=== PATIENT | male | born 1935 | race Caucasian/White ===

== ENCOUNTER 2017-03-20 12:17 | Emergency (ER) | payer OTHER ==
[~2017-03-20] VITALS: Ht 172.7 cm; Wt 72.5 kg
[~2017-03-20 12:17] MED LIST: AMLO-512 PO; ATOR20TA86 PO; BENA20 PO; CARV6 PO; FURO20TA4 PO; PIOG30TA10 PO; REPA2 PO; SITA50 PO; TAMS0.4C32 PO; WARF2 PO
[2017-03-20] MEDS ORDERED: FURO40 PO (12:34)
[2017-03-20 12:58] LABS: GLUCOSE,POINT OF CARE 101 MG/DL (70-110)
[2017-03-20] MEDS ORDERED: ACETAMINOPHEN 500 MG TABLET PO ONE (13:15)
[2017-03-20 13:34] VITALS: BP 134/75
== END 2017-03-20 14:36 | disposition home or self-care (01) ==
LOC: EMS 12:18
DX: M25.461 Effusion, right knee (principal); E11.9 Type 2 diabetes mellitus without complications; I11.0 Hypertensive heart disease with heart failure; I50.9 Heart failure, unspecified; K21.9 Gastro-esophageal reflux disease without esophagitis; E78.00 Pure hypercholesterolemia, unspecified
CPT/HCPCS: 29505; 82962; 99284

== ENCOUNTER 2017-04-05 13:29 | Inpatient (IN) | payer OTHER ==
[~2017-04-05] VITALS: Ht 175.3 cm; Wt 73.9 kg
[~2017-04-05 13:29] MED LIST changes: -FURO20TA4 PO; +FURO40 PO
[2017-04-05] MEDS ORDERED: IOVERSOL 350 MG/ML 100 ML VIAL ONE (13:45)
[2017-04-05] MEDS ORDERED: SODIUM CHLORIDE 0.9% 100 ML ONE (13:46)
[2017-04-05 14:14] LABS: INR 1.3 (0.9-1.1); PROTHROMBIN TIME 14.1 SEC (9.4-11.6)
[2017-04-05 14:24] LABS: HEMATOCRIT 37.5 % (41-53); HEMOGLOBIN 12.9 g/dL (13.5-17.5); MEAN CORPUSCULAR HEMOGLOBIN 33.3 pg (26.0-34.0); MEAN CORPUSCULAR HGB CONC 34.3 G/dL (31.0-37.0); MEAN CORPUSCULAR VOLUME 97 fL (80-100); RED BLOOD CELL COUNT(AUTO) 3.86 MIL/uL (4.50-5.90); RED CELL DISTRIBUTION WIDTH 15.4 % (11.5-14.5); WHITE BLOOD COUNT (AUTO) 5.7 K/uL (4.5-11.0)
[2017-04-05 14:25] LABS: BASOPHILS % (AUTO) 0.5 % (0.0-2.0); EOSINOPHILS % (AUTO) 2.8 % (1.0-6.0); LYMPHOCYTES % (AUTO) 34.4 % (22.0-44.0); MONOCYTES # (AUTO) 0.6 K/uL (0.1-1.0); MONOCYTES % (AUTO) 11.2 % (2.0-9.0); NEUTROPHILS # (AUTO) 2.9 K/uL (1.8-7.7); NEUTROPHILS % (AUTO) 51.1 % (40.0-70.0); PLATELET COUNT (AUTO) 152 K/uL (150-450)
[2017-04-05 14:35] LABS: ANION GAP 5 mmol/L (8-16); CALCIUM, TOTAL 8.1 mg/dL (8.8-10.5); CARBON DIOXIDE 32 mmol/L (22-29); CHLORIDE 100 mmol/L (98-107); CREATININE 1.09 mg/dL (0.60-1.30); GLOMERULAR FILTR. RATE CALC > 60 mL/min (>60); SODIUM SERUM 137 mmol/L (136-145); UREA NITROGEN, BLOOD 16 mg/dL (7-18)
[2017-04-05 14:41] LABS: ALANINE AMINOTRANSFERASE 28 U/L (12-78); ALBUMIN 2.9 g/dL (3.4-5.0); ASPARTATE AMINOTRANSFERASE 21 U/L (15-37); BILIRUBIN,TOTAL 1.1 mg/dL (0.1-1.0); CREATINE KINASE, TOTAL 49 U/L (39-308); TOTAL PROTEIN, SERUM 6.6 g/dL (6.4-8.2)
[2017-04-05] MEDS ORDERED: ACETAMINOPHEN 325 MG TABLET PO PRN ×2 (15:00→16:00)
[2017-04-05] MEDS ORDERED: 0.9% SODIUM CHLORIDE 10 ML SYRINGE IVP PRN (15:00)
[2017-04-05] MEDS ORDERED: ONDANSETRON HCL 4 MG/2 ML VIAL IVP PRN (15:00)
[2017-04-05] MEDS ORDERED: SODIUM CHLORIDE 0.9% 1,000 ML IV ONE (15:00)
[2017-04-05 15:06] LABS: APPEARANCE,URINE CLEAR (CLEAR); GLUCOSE, URINE (UA) NEGATIVE (NEGATIVE); KETONES,URINE NEGATIVE (NEGATIVE); LEUKOCYTE ESTERASE ,URINE TRACE (NEGATIVE); OCCULT BLOOD,URINE NEGATIVE (NEGATIVE); PH,URINE 6.5 (5.0-8.0); PROTEIN,URINE NEGATIVE (NEGATIVE)
[2017-04-05 15:16] LABS: ADD UA MICROSCOPIC YES; RBC,URINE 0-2 /HPF (0-2); WBC,URINE 0-2 /HPF (0-5)
[2017-04-05 15:18] LABS: B-TYPE NATRIURETIC PEPTIDE 317 pg/mL (0-100)
[2017-04-05] MEDS ORDERED: MAGNESIUM HYDROXIDE SUSPENSION 30 ML UDCUP PO PRN (16:00)
[2017-04-05] MEDS ORDERED: *CLINICAL-WARFARIN SODIUM DOSING CLINICAL ONE ×2 (16:00)
[2017-04-05] MEDS ORDERED: ALBUTEROL SULFATE 2.5 MG/0.5 ML NEB SOLUTION NEB PRN (16:00)
[2017-04-05] MEDS ORDERED: DEXTROSE 50%-WATER 25 GM/50 ML SYRINGE IVP PRN (16:00)
[2017-04-05 17:42] VITALS: BP 128/74
[2017-04-05] MEDS: ATORVASTATIN CALCIUM 20 MG TABLET PO SCH (18:34)
[2017-04-05] MEDS: WARFARIN SODIUM 2 MG TABLET PO SCH (18:34)
[2017-04-05 18:37] LABS: GLUCOSE,POINT OF CARE 78 MG/DL (70-110)
[2017-04-05 21:05] VITALS: BP 124/64
[2017-04-05] MEDS: DOCUSATE SODIUM 100 MG CAPSULE PO SCH (21:28)
[2017-04-05] MEDS: ENOXAPARIN SODIUM 60 MG/0.6 ML PF SYRINGE SQ SCH (22:02)
[2017-04-05] MEDS: INSULIN ASPART 100 UNITS/ML SQ PRN (22:02)
[2017-04-05 22:12] LABS: GLUCOSE,POINT OF CARE 180 MG/DL (70-110)
[2017-04-06 00:25] VITALS: BP 111/61
[2017-04-06 05:41] VITALS: BP 122/68
[2017-04-06 06:38] LABS: GLUCOSE,POINT OF CARE 89 MG/DL (70-110)
[2017-04-06 06:54] LABS: INR 1.4 (0.9-1.1); PROTHROMBIN TIME 14.8 SEC (9.4-11.6)
[2017-04-06] MEDS: PANTOPRAZOLE SODIUM 40 MG DR TABLET PO SCH (08:21)
[2017-04-06] MEDS: ENOXAPARIN SODIUM 60 MG/0.6 ML PF SYRINGE SQ SCH ×2 (08:21→20:53)
[2017-04-06] MEDS: ATORVASTATIN CALCIUM 20 MG TABLET PO SCH (08:21)
[2017-04-06] MEDS: DOCUSATE SODIUM 100 MG CAPSULE PO SCH ×2 (08:21→20:53)
[2017-04-06 11:48] LABS: GLUCOSE COMMENT 1 Received Meds; GLUCOSE,POINT OF CARE 143 MG/DL (70-110)
[2017-04-06 11:49] VITALS: BP 120/71
[2017-04-06] MEDS: INSULIN ASPART 100 UNITS/ML SQ PRN ×2 (12:09→20:57)
[2017-04-06 14:08] VITALS: BP 114/68
[2017-04-06 15:28] VITALS: BP 122/70
[2017-04-06] MEDS: WARFARIN SODIUM 2 MG TABLET PO SCH (17:08)
[2017-04-06 20:01] VITALS: BP 106/52
[2017-04-06 22:23] LABS: GLUCOSE,POINT OF CARE 196 MG/DL (70-110)
[2017-04-06 22:23] LABS: GLUCOSE,POINT OF CARE 87 MG/DL (70-110)
[2017-04-07 00:05] VITALS: BP 114/58
[2017-04-07 05:17] VITALS: BP 124/59
[2017-04-07 07:01] LABS: INR 1.7 (0.9-1.1); PROTHROMBIN TIME 17.7 SEC (9.4-11.6)
[2017-04-07 07:46] VITALS: BP 115/63
[2017-04-07] MEDS: ENOXAPARIN SODIUM 60 MG/0.6 ML PF SYRINGE SQ SCH (08:04)
[2017-04-07] MEDS: DOCUSATE SODIUM 100 MG CAPSULE PO SCH (08:04)
[2017-04-07] MEDS: ATORVASTATIN CALCIUM 20 MG TABLET PO SCH (08:04)
[2017-04-07] MEDS: PANTOPRAZOLE SODIUM 40 MG DR TABLET PO SCH (08:04)
[2017-04-07 11:11] VITALS: BP 116/70
[2017-04-07 15:10] VITALS: BP 119/47
[2017-04-08 13:42] LABS: GLUCOSE,POINT OF CARE 93 MG/DL (70-110)
[2017-04-08 13:42] LABS: GLUCOSE,POINT OF CARE 112 MG/DL (70-110)
== END 2017-04-07 15:40 | disposition home or self-care (01) | DRG 69 ==
LOC: EMS 13:29 → 4E 16:20 → 5S 04-06 13:00
PROVIDERS: ADMIT Internal Medicine; ATTEND Internal Medicine
DX: G45.9 Transient cerebral ischemic attack, unspecified (principal); E44.0 Moderate protein-calorie malnutrition; I48.0 Paroxysmal atrial fibrillation; I49.5 Sick sinus syndrome; D64.9 Anemia, unspecified; I50.40 Unspecified combined systolic (congestive) and diastolic (congestive) heart failure; I11.0 Hypertensive heart disease with heart failure; I48.2 Chronic atrial fibrillation; E11.9 Type 2 diabetes mellitus without complications; E78.00 Pure hypercholesterolemia, unspecified; E78.5 Hyperlipidemia, unspecified; I25.10 Atherosclerotic heart disease of native coronary artery without angina pectoris; K21.9 Gastro-esophageal reflux disease without esophagitis; Z79.01 Long term (current) use of anticoagulants; Z86.73 Personal history of transient ischemic attack (TIA), and cerebral infarction without residual deficits; Z95.0 Presence of cardiac pacemaker; Z68.24 Body mass index [BMI] 24.0-24.9, adult
CPT/HCPCS: 70496; 82962; 93005; 93306; 93880; 96360; 96361; 97162; 97164; 97165; 97530; 99285; J1650; J7050

== ENCOUNTER 2017-07-25 14:25 | Inpatient (IN) | payer MEDICARE, MEDICAID ==
[~2017-07-25] VITALS: Ht 165.1 cm; Wt 66.8 kg
[~2017-07-25 14:25] MED LIST changes: -AMLO-512 PO; -BENA20 PO; -FURO40 PO; -PIOG30TA10 PO; -REPA2 PO; -TAMS0.4C32 PO
[2017-07-25] MEDS ORDERED: FURO40 PO (14:38)
[2017-07-25] MEDS ORDERED: BENA20 PO (14:38)
[2017-07-25] MEDS ORDERED: LEVO75 PO (14:38)
[2017-07-25 17:00] LABS: BASOPHILS % (AUTO) 1.3 % (0.0-2.0); EOSINOPHILS % (AUTO) 2.7 % (1.0-6.0); HEMATOCRIT 37.5 % (41-53); HEMOGLOBIN 12.4 g/dL (13.5-17.5); LYMPHOCYTES # (AUTO) 1.9 K/uL (1.0-4.8); LYMPHOCYTES % (AUTO) 31.9 % (22.0-44.0); MEAN CORPUSCULAR HEMOGLOBIN 30.2 pg (26.0-34.0); MEAN CORPUSCULAR VOLUME 92 fL (80-100); MONOCYTES # (AUTO) 0.6 K/uL (0.1-1.0); MONOCYTES % (AUTO) 10.9 % (2.0-9.0); NEUTROPHILS # (AUTO) 3.1 K/uL (1.8-7.7); NEUTROPHILS % (AUTO) 53.2 % (40.0-70.0); PLATELET COUNT (AUTO) 110 K/uL (150-450); RED CELL DISTRIBUTION WIDTH 14.9 % (11.5-14.5)
[2017-07-25 17:13] LABS: PROTHROMBIN TIME 41.7 SEC (9.4-11.6)
[2017-07-25 17:16] LABS: INR 4.2 (0.9-1.1)
[2017-07-25 17:18] LABS: ALANINE AMINOTRANSFERASE 15 U/L (12-78); ALBUMIN 2.7 g/dL (3.4-5.0); ALKALINE PHOSPHATASE 102 U/L (46-116); ANION GAP 8 mmol/L (8-16); ASPARTATE AMINOTRANSFERASE 18 U/L (15-37); BILIRUBIN,TOTAL 2.8 mg/dL (0.1-1.0); CALCIUM, TOTAL 7.6 mg/dL (8.8-10.5); CARBON DIOXIDE 27 mmol/L (22-29); CHLORIDE 107 mmol/L (98-107); CREATINE KINASE, TOTAL 57 U/L (39-308); CREATININE 0.94 mg/dL (0.60-1.30); GLOMERULAR FILTR. RATE CALC > 60 mL/min (>60); GLUCOSE,RANDOM 142 mg/dL (70-110); SODIUM SERUM 142 mmol/L (136-145); TOTAL PROTEIN, SERUM 5.8 g/dL (6.4-8.2); UREA NITROGEN, BLOOD 16 mg/dL (7-18)
[2017-07-25 17:27] LABS: B-TYPE NATRIURETIC PEPTIDE 1160 pg/mL (0-100)
[2017-07-25 17:30] LABS: APPEARANCE,URINE CLEAR (CLEAR); BILIRUBIN,URINE NEGATIVE (NEGATIVE); GLUCOSE, URINE (UA) NEGATIVE (NEGATIVE); KETONES,URINE NEGATIVE (NEGATIVE); LEUKOCYTE ESTERASE ,URINE TRACE (NEGATIVE); NITRATE,URINE NEGATIVE (NEGATIVE); OCCULT BLOOD,URINE NEGATIVE (NEGATIVE); PROTEIN,URINE NEGATIVE (NEGATIVE)
[2017-07-25 17:48] LABS: BACTERIA,URINE None Seen /HPF (None Seen); RBC,URINE None Seen /HPF (0-2); SQUAMOUS EPITHELIAL CELL,UR Few /LPF (None Seen)
[2017-07-25 17:49] LABS: PLATELET MORPHOLOGY COMMENT GIANT PLTS PRESENT
[2017-07-25 17:51] LABS: LIPASE 56 U/L (73-393)
[2017-07-25] MEDS ORDERED: PIPERACILLIN/TAZO 3.375 GM/D5W 50 ML IV ONE (18:00)
[2017-07-25] MEDS ORDERED: POTASSIUM CHLORIDE 20 MEQ ER TABLET PO ONE (18:00)
[2017-07-25] MEDS ORDERED: 0.9% SODIUM CHLORIDE 10 ML SYRINGE IVP PRN ×2 (18:15→20:45)
[2017-07-25] MEDS ORDERED: ONDANSETRON HCL 4 MG/2 ML VIAL IVP PRN ×2 (18:15→20:45)
[2017-07-25] MEDS ORDERED: ACETAMINOPHEN 325 MG TABLET PO PRN (18:15)
[2017-07-25] MEDS ORDERED: FUROSEMIDE 40 MG/4 ML VIAL IVP ONE (18:15)
[2017-07-25 19:37] LABS: GLUCOSE,POINT OF CARE 130 MG/DL (70-110)
[2017-07-25] MEDS ORDERED: ACETAMINOPHEN 650 MG/20.3 ML SOLUTION UDCUP PO PRN (20:45)
[2017-07-25] MEDS ORDERED: ZOLPIDEM TARTRATE 5 MG TABLET PO PRN (20:45)
[2017-07-25] MEDS: CARVEDILOL 6.25 MG TABLET PO SCH (21:00)
[2017-07-25 21:13] LABS: THYROID STIMULATING HORMONE 5.37 uIU/mL (0.36-3.74)
[2017-07-25 21:20] VITALS: BP 104/68
[2017-07-25] MEDS ORDERED: SODIUM CHLORIDE 0.9% 250 ML IV ONE (21:41)
[2017-07-25] MEDS: FUROSEMIDE 40 MG/4 ML VIAL IVP SCH (21:51)
[2017-07-25] MEDS: DOCUSATE SODIUM 100 MG CAPSULE PO SCH (21:51)
[2017-07-25] MEDS: CefTRIAXone SODIUM 1 GM in DEXTROSE 5%-WATER 10 ML IV SCH (22:01)
[2017-07-25] MEDS ORDERED: DEXTROSE 50%-WATER 25 GM/50 ML SYRINGE IVP PRN (22:30)
[2017-07-25 23:30] VITALS: BP 133/89
[2017-07-26] MEDS ORDERED: PNEUMOCOCCAL VACCINE POLYVALENT 0.5 ML VIAL [PPSV23] IM ONE (00:45)
[2017-07-26] MEDS ORDERED: POTASSIUM CHL 10 MEQ/WATER 50 ML IV PRN (03:00)
[2017-07-26 04:30] VITALS: BP 119/89
[2017-07-26] MEDS: LEVOTHYROXINE SODIUM 75 MCG TABLET PO SCH (05:36)
[2017-07-26 06:38] LABS: BASOPHILS % (AUTO) 0.7 % (0.0-2.0); EOSINOPHILS % (AUTO) 1.5 % (1.0-6.0); HEMOGLOBIN 13.1 g/dL (13.5-17.5); LYMPHOCYTES # (AUTO) 1.6 K/uL (1.0-4.8); LYMPHOCYTES % (AUTO) 19.8 % (22.0-44.0); MEAN CORPUSCULAR HEMOGLOBIN 30.7 pg (26.0-34.0); MEAN CORPUSCULAR HGB CONC 33.6 G/dL (31.0-37.0); MEAN CORPUSCULAR VOLUME 91 fL (80-100); MONOCYTES # (AUTO) 0.8 K/uL (0.1-1.0); MONOCYTES % (AUTO) 10.2 % (2.0-9.0); NEUTROPHILS # (AUTO) 5.3 K/uL (1.8-7.7); NEUTROPHILS % (AUTO) 67.8 % (40.0-70.0); PLATELET COUNT (AUTO) 120 K/uL (150-450); RED BLOOD CELL COUNT(AUTO) 4.28 MIL/uL (4.50-5.90); RED CELL DISTRIBUTION WIDTH 15.4 % (11.5-14.5)
[2017-07-26 06:47] LABS: PLATELET MORPHOLOGY COMMENT GIANT PLTS PRESENT
[2017-07-26 06:50] LABS: INR 3.7 (0.9-1.1); PROTHROMBIN TIME 37.3 SEC (9.4-11.6)
[2017-07-26 07:21] LABS: ALBUMIN 2.9 g/dL (3.4-5.0); BILIRUBIN,TOTAL 3.2 mg/dL (0.1-1.0); CALCIUM, TOTAL 8.6 mg/dL (8.8-10.5); CREATININE 1.19 mg/dL (0.60-1.30); MAGNESIUM 1.9 mg/dL (1.80-2.40); POTASSIUM 3.3 mmol/L (3.5-5.1); TOTAL PROTEIN, SERUM 6.5 g/dL (6.4-8.2)
[2017-07-26 07:50] VITALS: BP 149/74
[2017-07-26] MEDS: DOCUSATE SODIUM 100 MG CAPSULE PO SCH ×2 (09:27→20:59)
[2017-07-26] MEDS: ATORVASTATIN CALCIUM 20 MG TABLET PO SCH (09:27)
[2017-07-26] MEDS: FUROSEMIDE 40 MG/4 ML VIAL IVP SCH ×2 (09:27→20:59)
[2017-07-26] MEDS: BENAZEPRIL HCL 20 MG TABLET PO SCH (09:27)
[2017-07-26] MEDS: CARVEDILOL 6.25 MG TABLET PO SCH ×2 (09:27→20:59)
[2017-07-26] MEDS: PANTOPRAZOLE SODIUM 40 MG/VIAL IVP SCH (09:27)
[2017-07-26] MEDS: SitaGLIPtin PHOSPHATE 50 MG TABLET PO SCH (09:27)
[2017-07-26 11:46] VITALS: BP 141/79
[2017-07-26] MEDS: WARFARIN SODIUM 5 MG TABLET PO SCH (13:50)
[2017-07-26] MEDS: SPIRONOLACTONE 50 MG TABLET PO SCH (14:32)
[2017-07-26] MEDS: POTASSIUM CHLORIDE 20 MEQ ER TABLET PO PRN (14:32)
[2017-07-26 15:18] VITALS: BP 125/85
[2017-07-26] MEDS: ALBUTEROL SULFATE 2.5 MG/0.5 ML NEB SOLUTION NEB SCH ×3 (15:20→23:04)
[2017-07-26] MEDS: IPRATROPIUM BROMIDE 0.5 MG/2.5 ML NEB SOLUTION NEB SCH ×3 (15:21→23:04)
[2017-07-26 16:59] LABS: GLUCOMETER DEV NAME(LOC) 5N 2S; GLUCOSE,POINT OF CARE 160 MG/DL (70-110)
[2017-07-26 16:59] LABS: GLUCOMETER DEV NAME(LOC) 5N 2S; GLUCOSE,POINT OF CARE 140 MG/DL (70-110)
[2017-07-26 16:59] LABS: GLUCOMETER DEV NAME(LOC) 5N 2S; GLUCOSE,POINT OF CARE 184 MG/DL (70-110)
[2017-07-26 20:17] VITALS: BP 120/78
[2017-07-26] MEDS: CefTRIAXone SODIUM 1 GM in DEXTROSE 5%-WATER 10 ML IV SCH (20:59)
[2017-07-26 23:46] VITALS: BP 114/68
[2017-07-27] MEDS: ALBUTEROL SULFATE 2.5 MG/0.5 ML NEB SOLUTION NEB SCH ×6 (03:00→23:56)
[2017-07-27] MEDS: IPRATROPIUM BROMIDE 0.5 MG/2.5 ML NEB SOLUTION NEB SCH ×6 (03:00→23:56)
[2017-07-27 04:10] VITALS: BP 118/65
[2017-07-27] MEDS: LEVOTHYROXINE SODIUM 75 MCG TABLET PO SCH (05:30)
[2017-07-27 05:52] LABS: BASOPHILS % (AUTO) 0.6 % (0.0-2.0); EOSINOPHILS % (AUTO) 1.5 % (1.0-6.0); HEMATOCRIT 39.2 % (41-53); HEMOGLOBIN 13.5 g/dL (13.5-17.5); LYMPHOCYTES % (AUTO) 23.1 % (22.0-44.0); MEAN CORPUSCULAR HEMOGLOBIN 30.8 pg (26.0-34.0); MEAN CORPUSCULAR HGB CONC 34.4 G/dL (31.0-37.0); MEAN CORPUSCULAR VOLUME 90 fL (80-100); MONOCYTES # (AUTO) 0.8 K/uL (0.1-1.0); MONOCYTES % (AUTO) 8.9 % (2.0-9.0); NEUTROPHILS # (AUTO) 5.6 K/uL (1.8-7.7); NEUTROPHILS % (AUTO) 65.9 % (40.0-70.0); PLATELET COUNT (AUTO) 112 K/uL (150-450); RED BLOOD CELL COUNT(AUTO) 4.37 MIL/uL (4.50-5.90); RED CELL DISTRIBUTION WIDTH 15.5 % (11.5-14.5)
[2017-07-27 06:15] LABS: BILIRUBIN,TOTAL 3.3 mg/dL (0.1-1.0); CALCIUM, TOTAL 8.7 mg/dL (8.8-10.5); CREATININE 1.3 mg/dL (0.60-1.30); POTASSIUM 3.8 mmol/L (3.5-5.1); TOTAL PROTEIN, SERUM 6.7 g/dL (6.4-8.2)
[2017-07-27 06:54] LABS: PLATELET MORPHOLOGY COMMENT GIANT PLTS PRESENT
[2017-07-27 07:17] VITALS: BP 132/82
[2017-07-27] MEDS: SPIRONOLACTONE 50 MG TABLET PO SCH (09:31)
[2017-07-27] MEDS: CARVEDILOL 6.25 MG TABLET PO SCH ×2 (09:31→20:13)
[2017-07-27] MEDS: ATORVASTATIN CALCIUM 20 MG TABLET PO SCH (09:31)
[2017-07-27] MEDS: DOCUSATE SODIUM 100 MG CAPSULE PO SCH ×2 (09:31→20:13)
[2017-07-27] MEDS: FUROSEMIDE 40 MG/4 ML VIAL IVP SCH ×2 (09:31→20:13)
[2017-07-27] MEDS: PANTOPRAZOLE SODIUM 40 MG/VIAL IVP SCH (09:31)
[2017-07-27] MEDS: BENAZEPRIL HCL 20 MG TABLET PO SCH (09:31)
[2017-07-27] MEDS: SitaGLIPtin PHOSPHATE 50 MG TABLET PO SCH (09:33)
[2017-07-27 11:28] VITALS: BP 133/74
[2017-07-27] MEDS: INSULIN LISPRO 100 UNITS/ML SQ PRN (12:16)
[2017-07-27 14:58] LABS: INR 3.6 (0.9-1.1); PROTHROMBIN TIME 36.1 SEC (9.4-11.6)
[2017-07-27 15:06] VITALS: BP 109/74
[2017-07-27] MEDS: WARFARIN SODIUM 5 MG TABLET PO SCH (15:58)
[2017-07-27 19:56] VITALS: BP 118/76
[2017-07-27] MEDS: CefTRIAXone SODIUM 1 GM in DEXTROSE 5%-WATER 10 ML IV SCH (20:12)
[2017-07-28] VITALS (7 sets, daily range): BP systolic 112–134; BP diastolic 66–79
[2017-07-28] MEDS: IPRATROPIUM BROMIDE 0.5 MG/2.5 ML NEB SOLUTION NEB SCH ×6 (03:00→22:53)
[2017-07-28] MEDS: ALBUTEROL SULFATE 2.5 MG/0.5 ML NEB SOLUTION NEB SCH ×6 (03:00→22:53)
[2017-07-28] MEDS: LEVOTHYROXINE SODIUM 75 MCG TABLET PO SCH (05:29)
[2017-07-28 06:23] LABS: BASOPHILS % (AUTO) 1.1 % (0.0-2.0); EOSINOPHILS % (AUTO) 3.8 % (1.0-6.0); HEMATOCRIT 36.3 % (41-53); HEMOGLOBIN 12.3 g/dL (13.5-17.5); LYMPHOCYTES # (AUTO) 1.8 K/uL (1.0-4.8); LYMPHOCYTES % (AUTO) 22.9 % (22.0-44.0); MEAN CORPUSCULAR HEMOGLOBIN 30.5 pg (26.0-34.0); MEAN CORPUSCULAR HGB CONC 33.8 G/dL (31.0-37.0); MEAN CORPUSCULAR VOLUME 90 fL (80-100); MONOCYTES # (AUTO) 0.7 K/uL (0.1-1.0); MONOCYTES % (AUTO) 8.7 % (2.0-9.0); NEUTROPHILS # (AUTO) 5.1 K/uL (1.8-7.7); NEUTROPHILS % (AUTO) 63.5 % (40.0-70.0); PLATELET COUNT (AUTO) 104 K/uL (150-450); RED BLOOD CELL COUNT(AUTO) 4.03 MIL/uL (4.50-5.90); RED CELL DISTRIBUTION WIDTH 15.3 % (11.5-14.5)
[2017-07-28 06:44] LABS: CALCIUM, TOTAL 8.5 mg/dL (8.8-10.5); CREATININE 1.23 mg/dL (0.60-1.30); POTASSIUM 3.4 mmol/L (3.5-5.1)
[2017-07-28 06:51] LABS: INR 2.7 (0.9-1.1); PROTHROMBIN TIME 27.1 SEC (9.4-11.6)
[2017-07-28] MEDS: CARVEDILOL 6.25 MG TABLET PO SCH ×2 (08:39→21:45)
[2017-07-28] MEDS: SPIRONOLACTONE 50 MG TABLET PO SCH (08:39)
[2017-07-28] MEDS: ATORVASTATIN CALCIUM 20 MG TABLET PO SCH (08:39)
[2017-07-28] MEDS: DOCUSATE SODIUM 100 MG CAPSULE PO SCH ×2 (08:39→21:45)
[2017-07-28] MEDS: FUROSEMIDE 40 MG/4 ML VIAL IVP SCH ×2 (08:39→21:45)
[2017-07-28] MEDS: SitaGLIPtin PHOSPHATE 50 MG TABLET PO SCH (08:39)
[2017-07-28] MEDS: PANTOPRAZOLE SODIUM 40 MG/VIAL IVP SCH (08:39)
[2017-07-28] MEDS: POTASSIUM CHLORIDE 20 MEQ ER TABLET PO PRN (08:39)
[2017-07-28] MEDS: BENAZEPRIL HCL 20 MG TABLET PO SCH (12:07)
[2017-07-28] MEDS: INSULIN LISPRO 100 UNITS/ML SQ PRN (12:12)
[2017-07-28] MEDS: MAGNESIUM HYDROXIDE SUSPENSION 30 ML UDCUP PO PRN (17:23)
[2017-07-28] MEDS: WARFARIN SODIUM 5 MG TABLET PO SCH (17:23)
[2017-07-28] MEDS: CefTRIAXone SODIUM 1 GM in DEXTROSE 5%-WATER 10 ML IV SCH (21:45)
[2017-07-29] MEDS: ALBUTEROL SULFATE 2.5 MG/0.5 ML NEB SOLUTION NEB SCH ×6 (02:27→23:11)
[2017-07-29] MEDS: IPRATROPIUM BROMIDE 0.5 MG/2.5 ML NEB SOLUTION NEB SCH ×6 (02:27→23:11)
[2017-07-29 04:35] VITALS: BP 105/62
[2017-07-29 06:17] LABS: BASOPHILS % (AUTO) 0.6 % (0.0-2.0); EOSINOPHILS % (AUTO) 4.6 % (1.0-6.0); HEMOGLOBIN 12.3 g/dL (13.5-17.5); LYMPHOCYTES # (AUTO) 1.5 K/uL (1.0-4.8); LYMPHOCYTES % (AUTO) 20.9 % (22.0-44.0); MEAN CORPUSCULAR HGB CONC 33.2 G/dL (31.0-37.0); MEAN CORPUSCULAR VOLUME 90 fL (80-100); MONOCYTES # (AUTO) 0.7 K/uL (0.1-1.0); MONOCYTES % (AUTO) 9.7 % (2.0-9.0); NEUTROPHILS # (AUTO) 4.7 K/uL (1.8-7.7); NEUTROPHILS % (AUTO) 64.2 % (40.0-70.0); PLATELET COUNT (AUTO) 117 K/uL (150-450); RED CELL DISTRIBUTION WIDTH 14.9 % (11.5-14.5)
[2017-07-29] MEDS: LEVOTHYROXINE SODIUM 75 MCG TABLET PO SCH (06:19)
[2017-07-29 06:30] LABS: PROTHROMBIN TIME 20.8 SEC (9.4-11.6)
[2017-07-29 07:09] LABS: ANION GAP 7 mmol/L (8-16); CALCIUM, TOTAL 8.3 mg/dL (8.8-10.5); CARBON DIOXIDE 31 mmol/L (22-29); CHLORIDE 103 mmol/L (98-107); CREATININE 1.12 mg/dL (0.60-1.30); GLOMERULAR FILTR. RATE CALC > 60 mL/min (>60); GLUCOSE,RANDOM 109 mg/dL (70-110); POTASSIUM 3.5 mmol/L (3.5-5.1); SODIUM SERUM 141 mmol/L (136-145); UREA NITROGEN, BLOOD 16 mg/dL (7-18)
[2017-07-29 07:53] VITALS: BP 113/65
[2017-07-29] MEDS: PANTOPRAZOLE SODIUM 40 MG/VIAL IVP SCH (08:04)
[2017-07-29] MEDS: SPIRONOLACTONE 50 MG TABLET PO SCH (08:04)
[2017-07-29] MEDS: DOCUSATE SODIUM 100 MG CAPSULE PO SCH ×2 (08:04→20:52)
[2017-07-29] MEDS: FUROSEMIDE 40 MG/4 ML VIAL IVP SCH ×2 (08:04→21:00)
[2017-07-29] MEDS: BENAZEPRIL HCL 20 MG TABLET PO SCH (08:04)
[2017-07-29] MEDS: ATORVASTATIN CALCIUM 20 MG TABLET PO SCH (08:05)
[2017-07-29] MEDS: MAGNESIUM HYDROXIDE SUSPENSION 30 ML UDCUP PO PRN ×2 (08:05→20:52)
[2017-07-29] MEDS: CARVEDILOL 6.25 MG TABLET PO SCH ×2 (08:05→21:00)
[2017-07-29] MEDS: SitaGLIPtin PHOSPHATE 50 MG TABLET PO SCH (08:05)
[2017-07-29] MEDS ORDERED: SODIUM CHLORIDE 0.9% 250 ML IV ONE (08:28)
[2017-07-29 11:38] VITALS: BP 115/74
[2017-07-29] MEDS ORDERED: SODIUM CHLORIDE 0.9% 100 ML ONE (11:49)
[2017-07-29] MEDS: INSULIN LISPRO 100 UNITS/ML SQ PRN (12:17)
[2017-07-29] MEDS: POTASSIUM CHLORIDE 20 MEQ ER TABLET PO PRN (13:11)
[2017-07-29 16:15] VITALS: BP 111/68
[2017-07-29] MEDS: WARFARIN SODIUM 5 MG TABLET PO SCH (17:05)
[2017-07-29 19:21] VITALS: BP 103/61
[2017-07-29] MEDS: CefTRIAXone SODIUM 1 GM in DEXTROSE 5%-WATER 10 ML IV SCH (20:52)
[2017-07-29 23:53] VITALS: BP 105/62
[2017-07-30] MEDS: IPRATROPIUM BROMIDE 0.5 MG/2.5 ML NEB SOLUTION NEB SCH ×6 (02:36→22:34)
[2017-07-30] MEDS: ALBUTEROL SULFATE 2.5 MG/0.5 ML NEB SOLUTION NEB SCH ×6 (02:36→22:34)
[2017-07-30 04:27] VITALS: BP 114/64
[2017-07-30 06:09] LABS: BASOPHILS % (AUTO) 1.1 % (0.0-2.0); EOSINOPHILS % (AUTO) 5.5 % (1.0-6.0); HEMATOCRIT 36.5 % (41-53); HEMOGLOBIN 12.3 g/dL (13.5-17.5); LYMPHOCYTES # (AUTO) 1.6 K/uL (1.0-4.8); LYMPHOCYTES % (AUTO) 23.7 % (22.0-44.0); MEAN CORPUSCULAR HEMOGLOBIN 30.2 pg (26.0-34.0); MEAN CORPUSCULAR HGB CONC 33.7 G/dL (31.0-37.0); MEAN CORPUSCULAR VOLUME 90 fL (80-100); MONOCYTES # (AUTO) 0.7 K/uL (0.1-1.0); MONOCYTES % (AUTO) 10.8 % (2.0-9.0); NEUTROPHILS # (AUTO) 3.9 K/uL (1.8-7.7); NEUTROPHILS % (AUTO) 58.9 % (40.0-70.0); PLATELET COUNT (AUTO) 131 K/uL (150-450); RED BLOOD CELL COUNT(AUTO) 4.07 MIL/uL (4.50-5.90); RED CELL DISTRIBUTION WIDTH 15.3 % (11.5-14.5)
[2017-07-30] MEDS: LEVOTHYROXINE SODIUM 75 MCG TABLET PO SCH (06:15)
[2017-07-30 06:21] LABS: PROTHROMBIN TIME 20.1 SEC (9.4-11.6)
[2017-07-30 06:34] LABS: ALANINE AMINOTRANSFERASE 12 U/L (12-78); ALBUMIN 2.6 g/dL (3.4-5.0); ALKALINE PHOSPHATASE 102 U/L (46-116); ANION GAP 10 mmol/L (8-16); ASPARTATE AMINOTRANSFERASE 17 U/L (15-37); BILIRUBIN,TOTAL 2.1 mg/dL (0.1-1.0); CALCIUM, TOTAL 8.5 mg/dL (8.8-10.5); CARBON DIOXIDE 30 mmol/L (22-29); CHLORIDE 102 mmol/L (98-107); CREATININE 1.07 mg/dL (0.60-1.30); GLOMERULAR FILTR. RATE CALC > 60 mL/min (>60); GLUCOSE,RANDOM 109 mg/dL (70-110); POTASSIUM 3.9 mmol/L (3.5-5.1); SODIUM SERUM 142 mmol/L (136-145); TOTAL PROTEIN, SERUM 6.1 g/dL (6.4-8.2); UREA NITROGEN, BLOOD 18 mg/dL (7-18)
[2017-07-30 07:19] VITALS: BP 123/76
[2017-07-30] MEDS: FUROSEMIDE 40 MG/4 ML VIAL IVP SCH ×2 (08:08→21:05)
[2017-07-30] MEDS: PANTOPRAZOLE SODIUM 40 MG/VIAL IVP SCH (08:08)
[2017-07-30] MEDS: SPIRONOLACTONE 50 MG TABLET PO SCH (08:09)
[2017-07-30] MEDS: ATORVASTATIN CALCIUM 20 MG TABLET PO SCH (08:09)
[2017-07-30] MEDS: BENAZEPRIL HCL 20 MG TABLET PO SCH (08:09)
[2017-07-30] MEDS: CARVEDILOL 6.25 MG TABLET PO SCH ×2 (08:09→21:05)
[2017-07-30] MEDS: DOCUSATE SODIUM 100 MG CAPSULE PO SCH ×2 (08:09→21:05)
[2017-07-30] MEDS: SitaGLIPtin PHOSPHATE 50 MG TABLET PO SCH (08:09)
[2017-07-30] MEDS: MAGNESIUM HYDROXIDE SUSPENSION 30 ML UDCUP PO PRN (08:11)
[2017-07-30 11:17] VITALS: BP 114/71
[2017-07-30] MEDS: INSULIN LISPRO 100 UNITS/ML SQ PRN (11:43)
[2017-07-30] MEDS: POTASSIUM CHLORIDE 20 MEQ ER TABLET PO PRN (12:36)
[2017-07-30 15:30] VITALS: BP 104/71
[2017-07-30] MEDS: WARFARIN SODIUM 5 MG TABLET PO SCH (17:17)
[2017-07-30 19:36] VITALS: BP 107/70
[2017-07-30] MEDS: CefTRIAXone SODIUM 1 GM in DEXTROSE 5%-WATER 10 ML IV SCH (21:06)
[2017-07-30 23:03] LABS: GLUCOMETER DEV NAME(LOC) 5N 2S; GLUCOSE,POINT OF CARE 144 MG/DL (70-110)
[2017-07-30 23:03] LABS: GLUCOMETER DEV NAME(LOC) 5N 2S; GLUCOSE,POINT OF CARE 139 MG/DL (70-110)
[2017-07-30 23:03] LABS: GLUCOMETER DEV NAME(LOC) 5N 2S; GLUCOSE,POINT OF CARE 180 MG/DL (70-110)
[2017-07-30 23:03] LABS: GLUCOMETER DEV NAME(LOC) 5N 2S; GLUCOSE,POINT OF CARE 126 MG/DL (70-110)
[2017-07-30 23:03] LABS: GLUCOMETER DEV NAME(LOC) 5N 2S; GLUCOSE,POINT OF CARE 168 MG/DL (70-110)
[2017-07-30 23:03] LABS: GLUCOMETER DEV NAME(LOC) 5N 2S; GLUCOSE,POINT OF CARE 123 MG/DL (70-110)
[2017-07-30 23:03] LABS: GLUCOMETER DEV NAME(LOC) 5N 2S; GLUCOSE,POINT OF CARE 121 MG/DL (70-110)
[2017-07-30 23:03] LABS: GLUCOMETER DEV NAME(LOC) 5N 2S; GLUCOSE,POINT OF CARE 146 MG/DL (70-110)
[2017-07-30 23:03] LABS: GLUCOMETER DEV NAME(LOC) 5N 2S; GLUCOSE,POINT OF CARE 148 MG/DL (70-110)
[2017-07-30 23:04] LABS: GLUCOMETER DEV NAME(LOC) 5N 2S; GLUCOSE,POINT OF CARE 131 MG/DL (70-110)
[2017-07-30 23:04] LABS: GLUCOMETER DEV NAME(LOC) 5N 2S; GLUCOSE,POINT OF CARE 107 MG/DL (70-110)
[2017-07-30 23:41] VITALS: BP 128/71
[2017-07-31] MEDS: ALBUTEROL SULFATE 2.5 MG/0.5 ML NEB SOLUTION NEB SCH ×4 (02:15→14:45)
[2017-07-31] MEDS: IPRATROPIUM BROMIDE 0.5 MG/2.5 ML NEB SOLUTION NEB SCH ×4 (02:15→14:45)
[2017-07-31 05:29] VITALS: BP 149/82
[2017-07-31] MEDS: LEVOTHYROXINE SODIUM 75 MCG TABLET PO SCH (05:49)
[2017-07-31 06:34] LABS: INR 2.1 (0.9-1.1); PROTHROMBIN TIME 21.6 SEC (9.4-11.6)
[2017-07-31] MEDS: INSULIN LISPRO 100 UNITS/ML SQ PRN ×2 (06:59→12:18)
[2017-07-31 07:03] VITALS: BP 122/81
[2017-07-31 08:19] LABS: GLUCOMETER DEV NAME(LOC) 5N 2S; GLUCOSE,POINT OF CARE 163 MG/DL (70-110)
[2017-07-31] MEDS: FUROSEMIDE 40 MG/4 ML VIAL IVP SCH (08:51)
[2017-07-31] MEDS: SPIRONOLACTONE 50 MG TABLET PO SCH (08:51)
[2017-07-31] MEDS: ATORVASTATIN CALCIUM 20 MG TABLET PO SCH (08:51)
[2017-07-31] MEDS: PANTOPRAZOLE SODIUM 40 MG/VIAL IVP SCH (08:51)
[2017-07-31] MEDS: DOCUSATE SODIUM 100 MG CAPSULE PO SCH (08:51)
[2017-07-31] MEDS: SitaGLIPtin PHOSPHATE 50 MG TABLET PO SCH (08:55)
[2017-07-31] MEDS: CARVEDILOL 6.25 MG TABLET PO SCH (08:56)
[2017-07-31] MEDS ORDERED: TAMSULOSIN HCL 0.4 MG CAPSULE PO SCH (09:00)
[2017-07-31 09:38] LABS: BASOPHILS % (AUTO) 0.9 % (0.0-2.0); EOSINOPHILS % (AUTO) 2.6 % (1.0-6.0); HEMATOCRIT 41.5 % (41-53); LYMPHOCYTES # (AUTO) 1.6 K/uL (1.0-4.8); LYMPHOCYTES % (AUTO) 19.1 % (22.0-44.0); MEAN CORPUSCULAR HEMOGLOBIN 30.2 pg (26.0-34.0); MEAN CORPUSCULAR HGB CONC 33.7 G/dL (31.0-37.0); MEAN CORPUSCULAR VOLUME 90 fL (80-100); MONOCYTES # (AUTO) 0.8 K/uL (0.1-1.0); MONOCYTES % (AUTO) 10.1 % (2.0-9.0); NEUTROPHILS # (AUTO) 5.5 K/uL (1.8-7.7); NEUTROPHILS % (AUTO) 67.3 % (40.0-70.0); PLATELET COUNT (AUTO) 154 K/uL (150-450); RED BLOOD CELL COUNT(AUTO) 4.63 MIL/uL (4.50-5.90)
[2017-07-31 09:55] LABS: CALCIUM, TOTAL 8.6 mg/dL (8.8-10.5); CREATININE 1.29 mg/dL (0.60-1.30); POTASSIUM 4.5 mmol/L (3.5-5.1)
[2017-07-31 10:28] VITALS: BP 114/63
[2017-07-31 10:46] VITALS: BP 108/63
[2017-07-31] MEDS: BENAZEPRIL HCL 20 MG TABLET PO SCH (11:23)
[2017-07-31] MEDS ORDERED: SPIR50 PO (13:29)
[2017-07-31] MEDS ORDERED: TAMS0.4C32 PO (13:30)
[2017-07-31] MEDS ORDERED: WARF5 PO (13:30)
[2017-07-31] MEDS ORDERED: CIPR500S5 PO (13:32)
[2017-07-31 15:27] VITALS: BP 104/69
[2017-07-31] MEDS: WARFARIN SODIUM 5 MG TABLET PO SCH (17:39)
[2017-08-03 18:44] LABS: GLUCOMETER DEV NAME(LOC) 5S 2N; GLUCOSE,POINT OF CARE 115 MG/DL (70-110)
[2017-08-03 18:44] LABS: GLUCOMETER DEV NAME(LOC) 5S 2N; GLUCOSE,POINT OF CARE 187 MG/DL (70-110)
[2017-08-03 18:44] LABS: GLUCOMETER DEV NAME(LOC) 5S 2N; GLUCOSE,POINT OF CARE 143 MG/DL (70-110)
[2017-08-03 18:44] LABS: GLUCOMETER DEV NAME(LOC) 5S 2N; GLUCOSE,POINT OF CARE 174 MG/DL (70-110)
[2017-08-03 18:45] LABS: GLUCOMETER DEV NAME(LOC) 5S 2N; GLUCOSE,POINT OF CARE 168 MG/DL (70-110)
[2017-08-03 18:45] LABS: GLUCOMETER DEV NAME(LOC) 5S 2N; GLUCOSE,POINT OF CARE 109 MG/DL (70-110)
[2017-08-03 18:45] LABS: GLUCOMETER DEV NAME(LOC) 5S 2N; GLUCOSE,POINT OF CARE 141 MG/DL (70-110)
[2017-08-03 18:45] LABS: GLUCOMETER DEV NAME(LOC) 5S 2N; GLUCOSE,POINT OF CARE 124 MG/DL (70-110)
[2017-08-03 18:45] LABS: GLUCOMETER DEV NAME(LOC) 5S 2N; GLUCOSE,POINT OF CARE 145 MG/DL (70-110)
[2017-08-03 18:45] LABS: GLUCOMETER DEV NAME(LOC) 5S 2N; GLUCOSE,POINT OF CARE 129 MG/DL (70-110)
[2017-08-03 18:45] LABS: GLUCOMETER DEV NAME(LOC) 5S 2N; GLUCOSE,POINT OF CARE 185 MG/DL (70-110)
== END 2017-07-31 18:00 | disposition home health service (06) | DRG 602 ==
LOC: EMS 14:27 → 5N 18:05
PROVIDERS: ADMIT Internal Medicine; ATTEND Internal Medicine
DX: L03.115 Cellulitis of right lower limb (principal); I50.21 Acute systolic (congestive) heart failure; I48.2 Chronic atrial fibrillation; E11.9 Type 2 diabetes mellitus without complications; I11.0 Hypertensive heart disease with heart failure; L03.116 Cellulitis of left lower limb; E78.00 Pure hypercholesterolemia, unspecified; E03.9 Hypothyroidism, unspecified; E78.5 Hyperlipidemia, unspecified; E87.6 Hypokalemia; K21.9 Gastro-esophageal reflux disease without esophagitis; R33.9 Retention of urine, unspecified; K74.60 Unspecified cirrhosis of liver; Z79.01 Long term (current) use of anticoagulants; Z82.3 Family history of stroke; Z82.49 Family history of ischemic heart disease and other diseases of the circulatory system; Z83.3 Family history of diabetes mellitus; Z86.73 Personal history of transient ischemic attack (TIA), and cerebral infarction without residual deficits; Z95.0 Presence of cardiac pacemaker
CPT/HCPCS: 70450; 76700; 80074; 82962; 83735; 84132; 84443; 87086; 93005; 93306; 93925; 93970; 94640; 96365; 96375; 97161; 97535; 99285; C9113; J0696; J1940; J2543; J3480; J7050; J7060

== ENCOUNTER 2017-08-03 18:53 | Emergency (ER) | payer MEDICARE, MEDICAID ==
[~2017-08-03] VITALS: Ht 162.6 cm; Wt 61.4 kg
[~2017-08-03 18:53] MED LIST changes: +BENA20 PO; +CIPR500S5 PO; +FURO40 PO; +LEVO75 PO; +SPIR50 PO; +TAMS0.4C32 PO; -WARF2 PO; +WARF5 PO
[2017-08-03 19:08] LABS: GLUCOSE,POINT OF CARE 260 MG/DL (70-110)
[2017-08-03 21:45] VITALS: BP 124/71
== END 2017-08-03 22:46 | disposition home or self-care (01) ==
LOC: EMS 18:54
DX: T83.031A Leakage of indwelling urethral catheter, initial encounter (principal); I11.0 Hypertensive heart disease with heart failure; I50.9 Heart failure, unspecified; E78.00 Pure hypercholesterolemia, unspecified; E11.9 Type 2 diabetes mellitus without complications; K21.9 Gastro-esophageal reflux disease without esophagitis
CPT/HCPCS: 51702; 82962; 99284

== ENCOUNTER → 2018-05-24 | Outpatient (CLI) | payer MEDICARE ==
[2018-05-24 12:16] LABS: INR 3.1 (0.9-1.1)
== END | disposition home or self-care (01) ==
LOC: LABPV 11:33
PROVIDERS: ATTEND Legal Medicine
DX: I48.1 Persistent atrial fibrillation (principal); I11.0 Hypertensive heart disease with heart failure; I50.9 Heart failure, unspecified; E11.9 Type 2 diabetes mellitus without complications

== ENCOUNTER → 2020-06-10 | Outpatient (CLI) | payer MEDICARE, MEDICAID ==
[~2020-06-10] MED LIST changes: -BENA20 PO; +BENA20TA11 PO; +TAMS-13 PO; -TAMS0.4C32 PO; -WARF5 PO; +WARF5TAB40 PO
== END | disposition home or self-care (01) ==
LOC: RADMN 11:10
PROVIDERS: ATTEND Legal Medicine
DX: M85.88 Other specified disorders of bone density and structure, other site (principal); I70.0 Atherosclerosis of aorta; M25.551 Pain in right hip; M47.816 Spondylosis without myelopathy or radiculopathy, lumbar region; G95.29 Other cord compression; M48.061 Spinal stenosis, lumbar region without neurogenic claudication
CPT/HCPCS: 72100; 73502

== ENCOUNTER 2021-05-31 17:15 | Inpatient (IN) | payer MEDICARE, MEDICAID ==
[~2021-05-31] VITALS: Ht 165.1 cm; Wt 52.9 kg
[~2021-05-31 17:15] MED LIST changes: -BENA20TA11 PO; +BENA20TA83 PO; -SPIR50 PO; +SPIR50TA27 PO
[2021-05-31 18:48] LABS: COVID AG,FIA SOURCE NASOPHARYNGEAL
[2021-05-31 18:51] LABS: BASOPHILS % (AUTO) 0.7 % (0.0-2.0); EOSINOPHILS % (AUTO) 3.3 % (1.0-6.0); HEMATOCRIT 40.5 % (41-53); HEMOGLOBIN 13.7 g/dL (13.5-17.5); LYMPHOCYTES # (AUTO) 1.6 K/uL (1.0-4.8); LYMPHOCYTES % (AUTO) 26.5 % (22.0-44.0); MEAN CORPUSCULAR HEMOGLOBIN 33.7 pg (26.0-34.0); MEAN CORPUSCULAR HGB CONC 33.9 G/dL (31.0-37.0); MEAN CORPUSCULAR VOLUME 99 fL (80-100); MONOCYTES # (AUTO) 0.7 K/uL (0.1-1.0); MONOCYTES % (AUTO) 10.9 % (2.0-9.0); NEUTROPHILS # (AUTO) 3.5 K/uL (1.8-7.7); NEUTROPHILS % (AUTO) 58.6 % (40.0-70.0); PLATELET COUNT (AUTO) 141 K/uL (150-450); RED BLOOD CELL COUNT(AUTO) 4.07 MIL/uL (4.50-5.90); RED CELL DISTRIBUTION WIDTH 14.9 % (11.5-14.5)
[2021-05-31 18:59] LABS: CALCIUM, TOTAL 8.8 mg/dL (8.8-10.5); CREATININE 1.2 mg/dL (0.60-1.30); POTASSIUM 4.8 mmol/L (3.5-5.1)
[2021-05-31 19:00] LABS: INR 2.9 (0.9-1.1)
[2021-05-31] MEDS ORDERED: *CLINICAL-WARFARIN SODIUM DOSING CLINICAL ONE (20:45)
[2021-05-31] MEDS ORDERED: DEXTROSE 50%-WATER 25 GM/50 ML SYRINGE IVP PRN (20:45)
[2021-05-31] MEDS ORDERED: WARFARIN SODIUM-INR 2.0-3.0-RX DOSING PER PROTOCOL PO PRN (21:00)
[2021-05-31] MEDS ORDERED: ACETAMINOPHEN 325 MG TABLET PO PRN (21:00)
[2021-05-31] MEDS ORDERED: WARFARIN SODIUM 2 MG TABLET PO ONE (21:00)
[2021-05-31 21:21] LABS: THYROID STIMULATING HORMONE 9.23 uIU/mL (0.36-3.74)
[2021-05-31] MEDS: DOCUSATE SODIUM 100 MG CAPSULE PO SCH (21:24)
[2021-05-31] MEDS: ATORVASTATIN CALCIUM 20 MG TABLET PO SCH (21:25)
[2021-05-31 22:58] VITALS: BP 106/65
[2021-06-01 02:21] LABS: GLUCOMETER DEV NAME(LOC) 5S.2B; GLUCOSE,POINT OF CARE 126 MG/DL (70-110)
[2021-06-01 03:23] VITALS: BP 106/75
[2021-06-01] MEDS ORDERED: CARVEDILOL 6.25 MG TABLET PO SCH (06:00)
[2021-06-01 07:15] LABS: GLUCOMETER DEV NAME(LOC) 5S.2B; GLUCOSE,POINT OF CARE 125 MG/DL (70-110)
[2021-06-01 07:24] LABS: INR 2.6 (0.9-1.1); PROTHROMBIN TIME 25.9 SEC (9.4-11.6)
[2021-06-01 07:31] LABS: CHOL/HDL RATIO 2.3 (4.2-7.3)
[2021-06-01 07:53] VITALS: BP 100/57
[2021-06-01] MEDS: DOCUSATE SODIUM 100 MG CAPSULE PO SCH ×2 (08:05→21:00)
[2021-06-01] MEDS: FAMOTIDINE 20 MG TABLET PO SCH (08:05)
[2021-06-01] MEDS: CARVEDILOL 6.25 MG TABLET PO SCH ×2 (08:05→21:00)
[2021-06-01] MEDS: INSULIN LISPRO 100 UNITS/ML SQ PRN ×2 (11:38→17:59)
[2021-06-01 12:32] LABS: GLUCOMETER DEV NAME(LOC) 5S.2B; GLUCOSE,POINT OF CARE 247 MG/DL (70-110)
[2021-06-01 15:42] VITALS: BP 102/71
[2021-06-01] MEDS ORDERED: WARFARIN SODIUM 2 MG TABLET PO ONE (17:00)
[2021-06-01 19:55] VITALS: BP 91/61
[2021-06-01 20:37] LABS: GLUCOMETER DEV NAME(LOC) 5S.2B; GLUCOSE,POINT OF CARE 200 MG/DL (70-110)
[2021-06-01] MEDS: ATORVASTATIN CALCIUM 20 MG TABLET PO SCH (21:00)
[2021-06-01 23:40] VITALS: BP 94/55
[2021-06-02 04:56] LABS: GLUCOMETER DEV NAME(LOC) 5S.2B; GLUCOSE,POINT OF CARE 97 MG/DL (70-110)
[2021-06-02 05:27] VITALS: BP 115/72
[2021-06-02 07:56] LABS: INR 2.5 (0.9-1.1); PROTHROMBIN TIME 24.6 SEC (9.4-11.6)
[2021-06-02] MEDS: CARVEDILOL 6.25 MG TABLET PO SCH (08:10)
[2021-06-02] MEDS: FAMOTIDINE 20 MG TABLET PO SCH (08:10)
[2021-06-02] MEDS: DOCUSATE SODIUM 100 MG CAPSULE PO SCH (08:10)
[2021-06-02 08:54] VITALS: BP 96/60
[2021-06-02 11:56] VITALS: BP 90/61
[2021-06-02] MEDS: INSULIN LISPRO 100 UNITS/ML SQ PRN (12:10)
[2021-06-02 12:11] LABS: GLUCOMETER DEV NAME(LOC) 5S.2B; GLUCOSE,POINT OF CARE 177 MG/DL (70-110)
[2021-06-02 15:35] VITALS: BP 98/74
[2021-06-02] MEDS ORDERED: DIGO125T84 PO (16:04)
[2021-06-02] MEDS ORDERED: DIGOXIN 125 MCG TABLET PO ONE (16:15)
[2021-06-02] MEDS ORDERED: WARFARIN SODIUM 5 MG TABLET PO ONE (17:00)
[2021-06-02 20:11] LABS: GLUCOMETER DEV NAME(LOC) 5S.1; GLUCOSE,POINT OF CARE 105 MG/DL (70-110)
== END 2021-06-02 18:25 | disposition home or self-care (01) | DRG 69 ==
LOC: EMS 17:25 → 5S 20:55
PROVIDERS: ADMIT Internal Medicine; ATTEND Internal Medicine
DX: G45.9 Transient cerebral ischemic attack, unspecified (principal); I48.20 Chronic atrial fibrillation, unspecified; I50.22 Chronic systolic (congestive) heart failure; F01.50 Vascular dementia, unspecified severity, without behavioral disturbance, psychotic disturbance, mood disturbance, and anxiety; K21.9 Gastro-esophageal reflux disease without esophagitis; Z20.822 Contact with and (suspected) exposure to COVID-19; E78.00 Pure hypercholesterolemia, unspecified; E11.9 Type 2 diabetes mellitus without complications; I11.0 Hypertensive heart disease with heart failure; Z86.73 Personal history of transient ischemic attack (TIA), and cerebral infarction without residual deficits; Z82.49 Family history of ischemic heart disease and other diseases of the circulatory system; Z83.3 Family history of diabetes mellitus; Z79.899 Other long term (current) drug therapy; Z82.3 Family history of stroke
CPT/HCPCS: 70450; 70551; 71045; 80048; 80061; 82962; 84443; 85025; 85610; 92610; 93005; 93306; 97116; 97161; 97167; 97530; 97535; 99285; 36415-L1; 36415-TC

== ENCOUNTER 2021-07-28 18:02 | Inpatient (IN) | payer MEDICARE, MEDICAID ==
[~2021-07-28] VITALS: Ht 157.5 cm; Wt 54.0 kg
[~2021-07-28 18:02] MED LIST changes: -BENA20TA83 PO; -CARV6 PO; -CIPR500S5 PO; +DIGO125T84 PO; -FURO40 PO; -SPIR50TA27 PO; -TAMS-13 PO
[2021-07-28 19:10] LABS: BASOPHILS % (AUTO) 0.8 % (0.0-2.0); EOSINOPHILS % (AUTO) 1.6 % (1.0-6.0); HEMATOCRIT 46.9 % (41-53); HEMOGLOBIN 15.8 g/dL (13.5-17.5); LYMPHOCYTES # (AUTO) 1.4 K/uL (1.0-4.8); LYMPHOCYTES % (AUTO) 21.1 % (22.0-44.0); MEAN CORPUSCULAR HEMOGLOBIN 33.3 pg (26.0-34.0); MEAN CORPUSCULAR HGB CONC 33.8 G/dL (31.0-37.0); MEAN CORPUSCULAR VOLUME 99 fL (80-100); MONOCYTES # (AUTO) 0.6 K/uL (0.1-1.0); MONOCYTES % (AUTO) 8.8 % (2.0-9.0); NEUTROPHILS # (AUTO) 4.4 K/uL (1.8-7.7); NEUTROPHILS % (AUTO) 67.7 % (40.0-70.0); PLATELET COUNT (AUTO) 127 K/uL (150-450); RED BLOOD CELL COUNT(AUTO) 4.76 MIL/uL (4.50-5.90)
[2021-07-28 19:19] LABS: ALANINE AMINOTRANSFERASE 95 U/L (12-78); ALBUMIN 3.8 g/dL (3.4-5.0); ALKALINE PHOSPHATASE 216 U/L (46-116); ANION GAP 5 mmol/L (8-16); ASPARTATE AMINOTRANSFERASE 31 U/L (15-37); BILIRUBIN,TOTAL 1.7 mg/dL (0.1-1.0); CALCIUM, TOTAL 9.2 mg/dL (8.8-10.5); CARBON DIOXIDE 29 mmol/L (22-29); CHLORIDE 88 mmol/L (98-107); CREATININE 1.79 mg/dL (0.60-1.30); GLOMERULAR FILTR. RATE CALC 36 mL/min (>60); PHOSPHORUS 4.3 mg/dL (2.5-4.9); POTASSIUM 5.2 mmol/L (3.5-5.1); TOTAL PROTEIN, SERUM 8.1 g/dL (6.4-8.2); UREA NITROGEN, BLOOD 57 mg/dL (7-18)
[2021-07-28 19:25] LABS: GLUCOSE,RANDOM 751 mg/dL (70-110); SODIUM SERUM 122 mmol/L (136-145)
[2021-07-28 19:28] LABS: B-TYPE NATRIURETIC PEPTIDE 244 pg/mL (0-100)
[2021-07-28] MEDS ORDERED: SODIUM CHLORIDE 0.9% 1,000 ML IV ONE ×2 (19:30→22:15)
[2021-07-28] MEDS ORDERED: INSULIN REGULAR, HUMAN 100 UNITS/ML IVP ONE (19:30)
[2021-07-28] MEDS ORDERED: DOXYCYCLINE HYCLATE 100 MG TABLET PO ONE (20:00)
[2021-07-28 21:01] LABS: GLUCOMETER DEV NAME(LOC) ERT.5; GLUCOSE,POINT OF CARE 533 MG/DL (70-110)
[2021-07-28 21:31] LABS: CALCIUM, TOTAL 9.1 mg/dL (8.8-10.5); CREATININE 1.77 mg/dL (0.60-1.30); POTASSIUM 4.2 mmol/L (3.5-5.1)
[2021-07-28] MEDS ORDERED: DEXTROSE 50%-WATER 25 GM/50 ML SYRINGE IVP PRN (22:15)
[2021-07-28] MEDS ORDERED: ACETAMINOPHEN 325 MG TABLET PO PRN (22:15)
[2021-07-28 22:23] LABS: COVID AG,FIA SOURCE NASOPHARYNGEAL
[2021-07-28] MEDS: CARVEDILOL 3.125 MG TABLET PO SCH (22:30)
[2021-07-29] VITALS (7 sets, daily range): BP systolic 91–106; BP diastolic 55–68
[2021-07-29] MEDS: INSULIN GLARGINE,HUM.REC.ANLOG 100 UNITS/ML SQ SCH ×2 (00:31→20:37)
[2021-07-29] MEDS: INSULIN LISPRO 100 UNITS/ML SQ PRN ×4 (00:32→20:40)
[2021-07-29 02:12] LABS: APPEARANCE,URINE CLEAR (CLEAR); BILIRUBIN,URINE NEGATIVE (NEGATIVE); GLUCOSE, URINE (UA) >=1000 mg/dL (NEGATIVE); KETONES,URINE NEGATIVE (NEGATIVE); LEUKOCYTE ESTERASE ,URINE NEGATIVE (NEGATIVE); NITRATE,URINE NEGATIVE (NEGATIVE); OCCULT BLOOD,URINE NEGATIVE (NEGATIVE); PROTEIN,URINE NEGATIVE (NEGATIVE); UROBILINOGEN,URINE <=1.0 mg/dL (<=1.0)
[2021-07-29 02:32] LABS: BACTERIA,URINE None Seen /HPF (None Seen); RBC,URINE 0-2 /HPF (0-2); WBC,URINE 0-2 /HPF (0-5)
[2021-07-29 02:56] LABS: GLUCOMETER DEV NAME(LOC) 5S.1B; GLUCOSE,POINT OF CARE 405 MG/DL (70-110)
[2021-07-29 06:54] LABS: CALCIUM, TOTAL 8.7 mg/dL (8.8-10.5); CREATININE 1.24 mg/dL (0.60-1.30); POTASSIUM 3.7 mmol/L (3.5-5.1)
[2021-07-29] MEDS ORDERED: SPIR25TA6 PO (07:35)
[2021-07-29] MEDS ORDERED: FURO-152 PO (07:36)
[2021-07-29 08:46] LABS: GLUCOMETER DEV NAME(LOC) 5S.1B; GLUCOSE,POINT OF CARE 185 MG/DL (70-110)
[2021-07-29] MEDS: CARVEDILOL 3.125 MG TABLET PO SCH ×2 (09:00→20:31)
[2021-07-29] MEDS: FAMOTIDINE 20 MG TABLET PO SCH (09:14)
[2021-07-29] MEDS: ATORVASTATIN CALCIUM 20 MG TABLET PO SCH (09:14)
[2021-07-29] MEDS: DOCUSATE SODIUM 100 MG CAPSULE PO SCH ×2 (09:14→20:31)
[2021-07-29] MEDS: APIXABAN 2.5 MG TABLET PO SCH ×2 (09:14→20:31)
[2021-07-29 16:56] LABS: GLUCOMETER DEV NAME(LOC) 5N.3; GLUCOSE,POINT OF CARE 205 MG/DL (70-110)
[2021-07-29] MEDS: SODIUM CHLORIDE 0.9% 1,000 ML IV SCH (17:11)
[2021-07-29 18:42] LABS: GLUCOMETER DEV NAME(LOC) 5S.1B; GLUCOSE,POINT OF CARE 137 MG/DL (70-110)
[2021-07-29 22:21] LABS: GLUCOMETER DEV NAME(LOC) 5S.1B; GLUCOSE,POINT OF CARE 341 MG/DL (70-110)
[2021-07-30 04:00] VITALS: BP 98/59
[2021-07-30 07:48] VITALS: BP 95/58
[2021-07-30] MEDS: CARVEDILOL 3.125 MG TABLET PO SCH (09:00)
[2021-07-30] MEDS: FAMOTIDINE 20 MG TABLET PO SCH (09:28)
[2021-07-30] MEDS: APIXABAN 2.5 MG TABLET PO SCH (09:28)
[2021-07-30] MEDS: ATORVASTATIN CALCIUM 20 MG TABLET PO SCH (09:28)
[2021-07-30] MEDS: DOCUSATE SODIUM 100 MG CAPSULE PO SCH (09:28)
[2021-07-30 11:33] VITALS: BP 95/59
[2021-07-30 11:56] LABS: GLUCOMETER DEV NAME(LOC) 5S.1B; GLUCOSE,POINT OF CARE 195 MG/DL (70-110)
[2021-07-30] MEDS: INSULIN LISPRO 100 UNITS/ML SQ PRN (12:19)
[2021-07-30] MEDS: SODIUM CHLORIDE 0.9% 1,000 ML IV SCH (12:20)
[2021-07-30 13:29] LABS: BASOPHILS % (AUTO) 0.5 % (0.0-2.0); EOSINOPHILS % (AUTO) 2.8 % (1.0-6.0); HEMATOCRIT 42.2 % (41-53); HEMOGLOBIN 14.6 g/dL (13.5-17.5); LYMPHOCYTES # (AUTO) 1.7 K/uL (1.0-4.8); LYMPHOCYTES % (AUTO) 25.6 % (22.0-44.0); MEAN CORPUSCULAR HEMOGLOBIN 33.8 pg (26.0-34.0); MEAN CORPUSCULAR HGB CONC 34.7 G/dL (31.0-37.0); MEAN CORPUSCULAR VOLUME 97 fL (80-100); MONOCYTES # (AUTO) 0.5 K/uL (0.1-1.0); MONOCYTES % (AUTO) 7.9 % (2.0-9.0); NEUTROPHILS # (AUTO) 4.3 K/uL (1.8-7.7); NEUTROPHILS % (AUTO) 63.2 % (40.0-70.0); PLATELET COUNT (AUTO) 133 K/uL (150-450); RED BLOOD CELL COUNT(AUTO) 4.33 MIL/uL (4.50-5.90); RED CELL DISTRIBUTION WIDTH 13.1 % (11.5-14.5)
[2021-07-30 13:39] LABS: ANION GAP 4 mmol/L (8-16); CALCIUM, TOTAL 7.9 mg/dL (8.8-10.5); CARBON DIOXIDE 28 mmol/L (22-29); CHLORIDE 101 mmol/L (98-107); CREATININE 1.01 mg/dL (0.60-1.30); GLUCOSE,RANDOM 271 mg/dL (70-110); POTASSIUM 4.1 mmol/L (3.5-5.1); SODIUM SERUM 133 mmol/L (136-145); UREA NITROGEN, BLOOD 30 mg/dL (7-18)
[2021-07-30 13:40] LABS: GLOMERULAR FILTR. RATE CALC > 60 mL/min (>60)
[2021-07-30 15:42] VITALS: BP 96/63
[2021-07-30 18:02] LABS: GLUCOMETER DEV NAME(LOC) 5N.3; GLUCOSE,POINT OF CARE 62 MG/DL (70-110)
[2021-07-30 18:31] LABS: GLUCOMETER DEV NAME(LOC) 5S.1B; GLUCOSE,POINT OF CARE 258 MG/DL (70-110)
== END 2021-07-30 18:00 | disposition home or self-care (01) | DRG 638 ==
LOC: EMS 18:12 → 5N 22:00
PROVIDERS: ADMIT Internal Medicine; ATTEND Internal Medicine
DX: E11.65 Type 2 diabetes mellitus with hyperglycemia (principal); N17.9 Acute kidney failure, unspecified; E87.0 Hyperosmolality and hypernatremia; I50.22 Chronic systolic (congestive) heart failure; E87.1 Hypo-osmolality and hyponatremia; E78.5 Hyperlipidemia, unspecified; I11.0 Hypertensive heart disease with heart failure; I48.91 Unspecified atrial fibrillation; F01.50 Vascular dementia, unspecified severity, without behavioral disturbance, psychotic disturbance, mood disturbance, and anxiety; E03.9 Hypothyroidism, unspecified; D69.6 Thrombocytopenia, unspecified; E86.0 Dehydration; K21.9 Gastro-esophageal reflux disease without esophagitis; E78.00 Pure hypercholesterolemia, unspecified; Z20.822 Contact with and (suspected) exposure to COVID-19; I08.1 Rheumatic disorders of both mitral and tricuspid valves; Z82.49 Family history of ischemic heart disease and other diseases of the circulatory system; Z83.3 Family history of diabetes mellitus; Z86.73 Personal history of transient ischemic attack (TIA), and cerebral infarction without residual deficits; Z79.4 Long term (current) use of insulin
CPT/HCPCS: 71045; 80048; 80053; 81001; 81003; 82009; 82962; 83735; 83880; 83930; 83935; 84100; 84484; 85025; 93005; 97162; 97166; 97535; 99291; J1815; 36415-L1; 36415-TC

== ENCOUNTER 2021-11-12 15:44 | Emergency (ER) | payer MEDICARE, MEDICAID ==
[~2021-11-12] VITALS: Ht 170.2 cm; Wt 54.5 kg
[2021-11-12] MEDS ORDERED: ACETAMINOPHEN 500 MG TABLET PO ONE (17:30)
[2021-11-12 18:25] LABS: APPEARANCE,URINE CLEAR (CLEAR); BILIRUBIN,URINE NEGATIVE (NEGATIVE); GLUCOSE, URINE (UA) NEGATIVE (NEGATIVE); KETONES,URINE NEGATIVE (NEGATIVE); LEUKOCYTE ESTERASE ,URINE TRACE (NEGATIVE); NITRATE,URINE NEGATIVE (NEGATIVE); OCCULT BLOOD,URINE NEGATIVE (NEGATIVE); PROTEIN,URINE NEGATIVE (NEGATIVE); SPECIFIC GRAVITIY, URINE 1.013 (1.003-1.030); UROBILINOGEN,URINE <=1.0 mg/dL (<=1.0)
[2021-11-12 18:43] LABS: BACTERIA,URINE None Seen /HPF (None Seen); RBC,URINE None Seen /HPF (0-2)
[2021-11-12] MEDS ORDERED: LIDO1ADH16 TP (19:00)
[2021-11-12 19:11] VITALS: BP 127/61
== END 2021-11-12 19:21 | disposition home or self-care (01) ==
LOC: EMS 15:50
DX: M54.50 Low back pain, unspecified (principal); I48.91 Unspecified atrial fibrillation; I11.0 Hypertensive heart disease with heart failure; I50.9 Heart failure, unspecified; E11.9 Type 2 diabetes mellitus without complications; E78.00 Pure hypercholesterolemia, unspecified; Z86.73 Personal history of transient ischemic attack (TIA), and cerebral infarction without residual deficits; Z87.19 Personal history of other diseases of the digestive system; Z96.89 Presence of other specified functional implants; Z98.890 Other specified postprocedural states
CPT/HCPCS: 29105; 72100; 81001; 99284; Z7502; Z7610